=== PATIENT | male | born 1995 | race Two or more races ===

== ENCOUNTER 2019-07-28 18:59 | Emergency (ER) | payer SELFPAY ==
[~2019-07-28] VITALS: Ht 188 cm; Wt 117.9 kg
[2019-07-28] MEDS ORDERED: ONDA4TAB12 PO (20:00)
[2019-07-28] MEDS ORDERED: ALBU2.5V8 IH (20:00)
[2019-07-28] MEDS ORDERED: BENZ100C PO (20:00)
[2019-07-28 20:10] VITALS: BP 146/78
--- NOTE | 2019-07-28 20:13 | PHYS DOC ---
Past History Past Medical History: No Pertinent History Past Surgical History: No Surgical History Alcohol Use: None Drug Use: None Adult General Chief Complaint Chief Complaint: COUGH HPI HPI Patient is a 23-year-old male is presenting with 4 days of subjective fever cough mostly dry but sometimes he coughs somewhat C throws up. He threw up on his speech check on his cell phone while at work earlier in the day he was very worried came to the emergency room for evaluation someone told me her acetone he was a kid. He denies other medical history he is frustrated because his is newly he does not want to be around her. Review of Systems Review of Systems throat is raw from coughing Cardiovascular: No additional information not addressed in HPI [] GI: Denies abdominal pain Integument: Denies rash or skin lesions [] Neurologic: Denies, focal weakness or sensory changes [] Endocrine: Denies polyuria or polydipsia [] All other systems were reviewed and found to be within normal limits, except as documented in this note. Allergies Allergies Allergies Uncoded Allergies Type Severity Reaction Last Updated Verified DYE Allergy Unknown 07/28/19 Physical Exam Physical Exam Constitutional: Well developed, well nourished, no acute distress, non-toxic appearance. [] HENT: Normocephalic, atraumatic, bilateral external ears normal, oropharynx moist, no oral exudates, nose normal. [] Eyes: PERRLA, EOMI, conjunctiva normal, no discharge. [] Neck: Normal range of motion, no tenderness, supple, no stridor. [] Cardiovascular:Heart rate regular rhythm, no murmur [] Lungs & Thorax: Bilateral breath sounds clear to auscultation [] reactive cough Abdomen: Bowel sounds normal, soft, no tenderness, no masses, no pulsatile masses. [] Skin: Warm, dry, no erythema, no rash. [] Back: No tenderness, no CVA tenderness. [] Extremities: No tenderness, no cyanosis, no clubbing, ROM intact, no edema. [] Neurologic: Alert and oriented X 3, normal motor function, normal sensory function, no focal deficits noted. [] Psychologic: Affect normal, judgement normal, mood normal. [] Current Patient Data Vital Signs Vital Signs Date Time Temp Pulse Resp B/P (MAP) Pulse Ox O2 Delivery O2 Flow Rate FiO2 07/28/19 19:05 98.4 78 20 95 Room Air Lab Results Temperature (Fahrenheit): * 98.4 degrees F (97.6-99.5) Patient Temperature * 98.4 degrees F (97.5-99.5) Temperature Source * Oral Blood Pressure Systolic * 143 mm Hg (100-140) H Blood Pressure Diastolic * 85 mm Hg (60-100) Blood Pressure Mean * 104 mm Hg Blood Pressure Location * Right Arm Blood Pressure Source * Automatic Cuff Pulse Rate * 78 beats per minute (60-90) Pulse Assessment Method * Monitor Respiratory Rate * 20 breaths per minute (12-24) Oxygen Delivery Method * Room Air Bedside Pulse Oximetry * 95 % Treatment Prior to Arrival * No EKG EKG [] Radiology/Procedures Radiology/Procedures [] Course & Med Decision Making Course & Med Decision Making Pertinent Labs and Imaging studies reviewed. (See chart for details) []Overall well-appearing young gentleman with 4 days now of flulike illness with reactive cough on examination no rhonchi noted sat normal symptomatic treatment was provided patient discharged in stable condition Dragon Disclaimer Dragsandra Disclaimer This electronic medical record was generated, in whole or in part, using a voice recognition dictation system. Departure Departure: Impression: Primary Impression: Bronchitis Disposition: 01 HOME, SELF-CARE Condition: STABLE Patient Instructions: Bronchitis, [id number] Scripts Benzonatate (TESSALON PERLE) 100 Mg Capsule 1 CAP PO TID PRN for COUGH, #21 CAP Prov: WERNER PEREZ MD 07/28/19 Albuterol Sulfate (PROAIR HFA INHALER) 8.5 Gm Hfa.aer.ad 2 PUFF IH PRN Q4-6HRS PRN for wheezing for 21 Days, #1 INHALER 0 Refills Prov: WERNER PEREZ MD 07/28/19 Ondansetron (ONDANSETRON ODT) 4 Mg Tab.rapdis 1 TAB PO PRN Q6-8HRS PRN for NAUSEA/VOMITING, #16 TAB Prov: WERNER PEREZ MD 07/28/19 WERNER PEREZ MD Jul 28, 2019 20:13
== END 2019-07-28 20:20 | disposition home or self-care (01) ==
LOC: ER 18:59
DX: J40 Bronchitis, not specified as acute or chronic (principal); Z91.041 Radiographic dye allergy status
CPT/HCPCS: 99283